=== PATIENT | male | born 1970 | race Caucasian/White ===

== ENCOUNTER 2017-08-06 11:02 | Emergency (ER) | payer SELFPAY ==
[~2017-08-06] VITALS: Ht 175.3 cm; Wt 61.7 kg
[~2017-08-06 11:02] MED LIST: LOR5/325 PO; PENI-24 PO; PER PO
[2017-08-06] MEDS ORDERED: BISM-40 PO (11:12)
[2017-08-06] MEDS ORDERED: COLD (11:12)
--- NOTE | 2017-08-06 11:13 | ER Report ---
History and Physical Time Seen By MD: 11:13 Hx. of Stated Complaint: ABD PAIN FOR 3 DAYS, GETTING NO BETTER, SLIGHT N/D HPI/ROS CHIEF COMPLAINT: Abdominal pain HISTORY OF PRESENT ILLNESS: 47-year-old male patient presents to emergency room with complaint of abdominal pain. Patient states this been going on for the past 3 days. He states this started while he was on his day off. He states that he has not been able to work because is having so much pain. He states the pain seems to be most [place] in the left upper quadrant as well as some slight discomfort in the right upper quadrant. Patient denies having any fevers, chills. He states his been nauseated and having some diarrhea. Patient did force himself to vomit twice. He states there was no improvement with that. Patient has taken Pepto-Bismol as well as an [id number] flu medication with no improvement. He states that he is more concerned because the pain does not seem to be improving. REVIEW OF SYSTEMS: Respiratory: No cough, no dyspnea. Cardiovascular: No chest pain, no palpitations. Gastrointestinal: As noted above. Musculoskeletal: No back pain. Allergies: Coded Allergies: No Known Drug Allergies (Unverified , 11/06/11) Home Meds Active Scripts Tramadol Hcl (TRAMADOL HCL) 50 Mg Tablet, 50 MG PO Q4-6H Y for PAIN, #10 TAB Prov:LILY MORSE [employer] 08/06/17 Reported Medications Bismuth Subsalicylate (PEPTO-BISMOL) 262 Mg/15 Ml Oral.susp, 262 MG PO 08/06/17 [Otc Cold] No Conflict Check 08/06/17 Discontinued Reported Medications Hydrocodone Bit/Acetaminophen (HYDROCODON-ACETAMINOPHEN 5-325) 1 Each Tablet, 2 EACH PO Q6H 03/09/13 Penicillin V Potassium 500 Mg Tab (PENICILLIN V POTASSIUM 500 MG TAB) 500 Mg Tablet, 500 MG PO 03/09/13 Hydrocodone Bit/Acetaminophen (HYDROCODON-ACETAMINOPHEN 5-325) 1 Each Tablet, 2 EACH PO Q6H, #20 03/09/13 Penicillin V Potassium 500 Mg Tab (PENICILLIN V POTASSIUM 500 MG TAB) 500 Mg Tablet, 500 MG PO 3xd for 10 Days 03/09/13 Past Medical/Surgical History Patient has a past medical history of rib fractures, marijuana use, depression. Patient denies any surgical history. Reviewed Nurses Notes: Yes Hx Smoking: Yes Hx Substance Use Disorder: Yes (OCC POT) Hx Alcohol Use: No Constitutional Vital Sign - Last 24 Hours 08/06/17 08/06/17 08/06/17 08/06/17 11:08 11:08 11:30 11:32 Temp 97.9 Pulse 59 56 Resp 20 B/P (MAP) 159/100 159/100 (119) 141/110 (120) Pulse Ox 96 97 O2 Delivery Room Air 08/06/17 08/06/17 08/06/17 08/06/17 12:00 12:02 12:30 12:32 Pulse 56 68 B/P (MAP) 135/84 (101) 135/102 (113) Pulse Ox 95 98 08/06/17 08/06/17 12:37 12:39 Pulse 57 B/P (MAP) 140/94 (109) 140/94 (109) Intake and Output 08/06/17 08/06/17 08/07/17 15:00 23:00 07:00 Intake Total 1000 ml Balance 1000 ml Physical Exam General Appearance: The patient is alert, has no immediate need for airway protection and no current signs of toxicity. Respiratory: Chest is non tender, lungs are clear to auscultation. Cardiac: regular rate and rhythm Gastrointestinal: Abdomen is soft and tender in the bilateral upper quadrants, seems to have slight hepatomegaly, no masses, bowel sounds normal. Musculoskeletal: Neck: Neck is supple and non tender. Extremities have full range of motion and are non tender. Skin: No rashes or lesions. DIFFERENTIAL DIAGNOSIS: After history and physical exam differential diagnosis was considered for abdominal pain including but not limited to appendicitis, cholecystitis, gastritis and urinary tract infection. Medical Decision Making Data Points Result Diagram: 08/06/17 1122 08/06/17 1122 Laboratory Hematology Test 08/06/17 11:07 08/06/17 11:22 Urine Color Yellow Urine Clarity Clear Urine pH 6.0 pH (4.8-9.5) Urine Specific Luther 1.030 Urine Protein Negative mg/dL (NEGATIVE) Urine Glucose (UA) Negative mg/dL (NEGATIVE) Urine Ketones 20 mg/dL (NEGATIVE) Urine Blood Negative (NEGATIVE) Urine Nitrite Negative (NEGATIVE) Urine Bilirubin Negative (NEGATIVE) Urine Urobilinogen Negative mg/dL (0.2-1.9) Urine Leukocyte Esterase Negative (NEGATIVE) Urine RBC <1 /HPF (0-2/HPF) Urine WBC None /HPF (0-5/HPF) Urine Squamous Epithelial Cells None /LPF (</=FEW) Urine Bacteria Negative /HPF (NONE-FEW) Urine Mucus Few /HPF (NONE-FEW) Red Blood Count 5.38 M/uL (4.00-5.60) Mean Corpuscular Volume 97.6 fL (80.0-96.0) Mean Corpuscular Hemoglobin 33.9 pg (26.0-33.0) Mean Corpuscular Hemoglobin Concent 34.7 g/dL (32.0-36.0) Red Cell Distribution Width 12.8 % (11.5-14.5) Mean Platelet Volume 7.3 fL (7.2-11.1) Neutrophils (%) (Auto) 79.3 % (39.4-72.5) Lymphocytes (%) (Auto) 13.9 % (17.6-49.6) Monocytes (%) (Auto) 5.8 % (4.1-12.4) Eosinophils (%) (Auto) 0.5 % (0.4-6.7) Basophils (%) (Auto) 0.5 % (0.3-1.4) Nucleated RBC Relative Count (auto) 0.0 /100WBC Neutrophils # (Auto) 6.0 K/uL (2.0-7.4) Lymphocytes # (Auto) 1.1 K/uL (1.3-3.6) Monocytes # (Auto) 0.4 K/uL (0.3-1.0) Eosinophils # (Auto) 0.0 K/uL (0.0-0.5) Basophils # (Auto) 0.0 K/uL (0.0-0.1) Nucleated RBC Absolute Count (auto) 0.00 K/uL Sodium Level 141 mmol/L (137-145) Potassium Level 3.8 mmol/L (3.5-5.0) Chloride Level 103 mmol/L (98-107) Carbon Dioxide Level 26 mmol/L (22-30) Blood Urea Nitrogen 18 mg/dl (9-21) Creatinine 0.90 mg/dl (0.66-1.25) Glomerular Filtration Rate Calc > 60.0 Random Glucose 104 mg/dl (75-110) Calcium Level 8.9 mg/dl (8.4-10.2) Total Bilirubin 0.5 mg/dl (0.2-1.3) Aspartate Amino Transf (AST/SGOT) 42 U/L (0-35) Alanine Aminotransferase (ALT/SGPT) 62 U/L (0-56) Alkaline Phosphatase 87 U/L (0-126) C-Reactive Protein < 0.5 mg/dl (<1.0) Total Protein 7.4 gm/dl (6.3-8.2) Albumin 4.1 g/dl (3.5-5.0) Lipase 61 U/L (23-300) Chemistry Test 08/06/17 11:07 08/06/17 11:22 Urine Color Yellow Urine Clarity Clear Urine pH 6.0 pH (4.8-9.5) Urine Specific Luther 1.030 Urine Protein Negative mg/dL (NEGATIVE) Urine Glucose (UA) Negative mg/dL (NEGATIVE) Urine Ketones 20 mg/dL (NEGATIVE) Urine Blood Negative (NEGATIVE) Urine Nitrite Negative (NEGATIVE) Urine Bilirubin Negative (NEGATIVE) Urine Urobilinogen Negative mg/dL (0.2-1.9) Urine Leukocyte Esterase Negative (NEGATIVE) Urine RBC <1 /HPF (0-2/HPF) Urine WBC None /HPF (0-5/HPF) Urine Squamous Epithelial Cells None /LPF (</=FEW) Urine Bacteria Negative /HPF (NONE-FEW) Urine Mucus Few /HPF (NONE-FEW) White Blood Count 7.6 k/uL (4.5-11.0) Red Blood Count 5.38 M/uL (4.00-5.60) Hemoglobin 18.2 g/dL (14.0-18.0) Hematocrit 52.5 % (42.0-52.0) Mean Corpuscular Volume 97.6 fL (80.0-96.0) Mean Corpuscular Hemoglobin 33.9 pg (26.0-33.0) Mean Corpuscular Hemoglobin Concent 34.7 g/dL (32.0-36.0) Red Cell Distribution Width 12.8 % (11.5-14.5) Platelet Count 253 K/uL (150-450) Mean Platelet Volume 7.3 fL (7.2-11.1) Neutrophils (%) (Auto) 79.3 % (39.4-72.5) Lymphocytes (%) (Auto) 13.9 % (17.6-49.6) Monocytes (%) (Auto) 5.8 % (4.1-12.4) Eosinophils (%) (Auto) 0.5 % (0.4-6.7) Basophils (%) (Auto) 0.5 % (0.3-1.4) Nucleated RBC Relative Count (auto) 0.0 /100WBC Neutrophils # (Auto) 6.0 K/uL (2.0-7.4) Lymphocytes # (Auto) 1.1 K/uL (1.3-3.6) Monocytes # (Auto) 0.4 K/uL (0.3-1.0) Eosinophils # (Auto) 0.0 K/uL (0.0-0.5) Basophils # (Auto) 0.0 K/uL (0.0-0.1) Nucleated RBC Absolute Count (auto) 0.00 K/uL Glomerular Filtration Rate Calc > 60.0 Calcium Level 8.9 mg/dl (8.4-10.2) Total Bilirubin 0.5 mg/dl (0.2-1.3) Aspartate Amino Transf (AST/SGOT) 42 U/L (0-35) Alanine Aminotransferase (ALT/SGPT) 62 U/L (0-56) Alkaline Phosphatase 87 U/L (0-126) C-Reactive Protein < 0.5 mg/dl (<1.0) Total Protein 7.4 gm/dl (6.3-8.2) Albumin 4.1 g/dl (3.5-5.0) Lipase 61 U/L (23-300) Urinalysis Test 08/06/17 11:07 Urine Color Yellow Urine Clarity Clear Urine pH 6.0 pH (4.8-9.5) Urine Specific Luther 1.030 Urine Protein Negative mg/dL (NEGATIVE) Urine Glucose (UA) Negative mg/dL (NEGATIVE) Urine Ketones 20 mg/dL (NEGATIVE) Urine Blood Negative (NEGATIVE) Urine Nitrite Negative (NEGATIVE) Urine Bilirubin Negative (NEGATIVE) Urine Urobilinogen Negative mg/dL (0.2-1.9) Urine Leukocyte Esterase Negative (NEGATIVE) Urine RBC <1 /HPF (0-2/HPF) Urine WBC None /HPF (0-5/HPF) Urine Squamous Epithelial Cells None /LPF (</=FEW) Urine Bacteria Negative /HPF (NONE-FEW) Urine Mucus Few /HPF (NONE-FEW) EKG/Imaging Imaging Additional pertinent History: Abdominal pain TECHNIQUE: Spiral scan was through the abdomen and pelvis during injection of nonionic iodinated intravenous contrast. Contrast: 75 mL of IV Isovue-370. One of the following dose optimization techniques was utilized in the performance of this exam: Automated exposure control; adjustment of the mA and/ or kV according to the patient's size; or use of an iterative reconstruction technique. Specific details can be referenced in the facility's radiology CT exam operational policy. COMPARISON STUDIES: none. FINDINGS: Liver / biliary: Small hypoattenuated lesion in the right lobe of liver measuring 5 m. Gallbladder decompressed with no gallstones. Pancreas: negative Spleen: negative Adrenal glands: negative Kidneys / retroperitoneum: No renal stones or renal obstructive uropathy change. Normal renal nephrograms Pelvic structures: Prostate is normal. No pelvic fluid Bowel / peritoneum / mesenteries: Visualized bowel normal in appearance with no bowel inflammation. Appendix is normal. Vessels: negative Musculoskeletal / Body wall: negative Lymph node assessment: negative Lower chest: negative IMPRESSION: 1. Negative CT scan of the abdomen/pelvis for acute pathology. Specifically no diverticulitis or appendicitis. Report Dictated By: Philip Caldera MD at 08/06/2017 12:02 PM Report E-Signed By: Philip Caldera MD at 08/06/2017 12:11 PM ED Course/Re-evaluation ED Course Patient was admitted exam room, history and physical obtained. Differential diagnoses were considered. On examination patient had tenderness in the right upper and left upper quadrants. A CBC, CMP, urinalysis, CT scan of abdomen and pelvis were done. Patient received a normal saline bolus of 1 L. On reexamination patient states he is still having some discomfort states he does have decreased pain. Labs were unremarkable, CT scan of abdomen and pelvis showed no acute findings. I discussed this with the patient who verbalized understanding and agreement. We will go ahead and discharge patient home at this time. I will like him take Pepto-Bismol as needed for discomfort. I believe that he is likely having a gastroenteritis and should be on a clear liquid diet for the next 24-48 hours. Patient verbalized understanding and agreement. Decision to Disposition Date: Aug 06, 2017 Decision to Disposition Time: 12:26 Depart Departure Latest Vital Signs Vital Signs Date Time Temp Pulse Resp B/P (MAP) Pulse Ox O2 Delivery O2 Flow Rate FiO2 08/06/17 12:39 57 140/94 (109) 08/06/17 12:32 98 08/06/17 11:08 97.9 20 Room Air Impression: Primary Impression: Abdominal pain Condition: Improved Disposition: HOME OR SELF-CARE New Scripts Tramadol Hcl (TRAMADOL HCL) 50 Mg Tablet 50 MG PO Q4-6H Y for PAIN, #10 TAB Prov: LILY MORSE 08/06/17 Patient Instructions: Abdominal Pain (ED) Additional Instructions: Increase fluid intake. Clear liquid diet for the next 24-48 hours. After that you may advance diet as tolerated starting with complex carbohydrates ; rice, bread or pasta. Follow up with your primary care provider in the next week. Return to the ER if condition worsens. You may take over the counter Pepto Bismol as needed for cramping, diarrhea and discomfort. Problem Qualifiers Primary Impression: Abdominal pain Abdominal location: upper abdomen, unspecified Qualified Codes: R10.10 - Upper abdominal pain, unspecified MINIHILDAManoj LYLE Aug 06, 2017 11:13
[2017-08-06] MEDS ORDERED: NS(*) 0.9% 1000 ML BAG 1,000 ML IV ONE (11:22)
[2017-08-06 11:29] LABS: PLATELET COUNT, AUTOMATED 253 K/uL (150-450)
[2017-08-06] MEDS ORDERED: IOPAMIDOL 76% 75 ML INFUS BTL 75 ML ONE (11:42)
[2017-08-06] MEDS ORDERED: NS 0.9% 20 ML SDV 60 ML ONE (11:43)
--- NOTE | 2017-08-06 12:15 | RADIOLOGY IMAGING REPORT ---
FACILITY: [facility] PATIENT NAME: Reuben Clement : 1970 MR: [id number] V: [id number] EXAM DATE: ORDERING PHYSICIAN: LILY MORSE TECHNOLOGIST: Location: [facility] Patient: Reuben Clement : 1970 Visit/Account:[id number] Date of Sevice: 08/06/2017 With it was it was ordered as a single view adult O canal which is changing the order Additional pertinent History: Abdominal pain TECHNIQUE: Spiral scan was through the abdomen and pelvis during injection of nonionic iodinated in travenous contrast. Contrast: 75 mL of IV Isovue-370. One of the following dose optimization techniques was utilized in the performance of this exam: Autom ated exposure control; adjustment of the mA and/or kV according to the patient's size; or use of an i terative reconstruction technique. Specific details can be referenced in the facility's radiology C T exam operational policy. COMPARISON STUDIES: none. FINDINGS: Liver / biliary: Small hypoattenuated lesion in the right lobe of liver measuring 5 m. Gallbladder de compressed with no gallstones. Pancreas: negative Spleen: negative Adrenal glands: negative Kidneys / retroperitoneum: No renal stones or renal obstructive uropathy change. Normal renal nephrog padmini Pelvic structures: Prostate is normal. No pelvic fluid Bowel / peritoneum / mesenteries: Visualized bowel normal in appearance with no bowel inflammation. A ppendix is normal. Vessels: negative Musculoskeletal / Body wall: negative Lymph node assessment: negative Lower chest: negative IMPRESSION: 1. Negative CT scan of the abdomen/pelvis for acute pathology. Specifically no diverticulitis or appe ndicitis. Report Dictated By: Philip Caldera MD at 08/06/2017 12:02 PM Report E-Signed By: Philip Caldera MD at 08/06/2017 12:11 PM [id number]
[2017-08-06] MEDS ORDERED: TRAM-420 PO (12:32)
[2017-08-06 12:39] VITALS: BP 140/94
== END 2017-08-06 12:40 | disposition home or self-care (01) ==
LOC: ER 11:20
DX: R10.12 Left upper quadrant pain (principal); R10.11 Right upper quadrant pain
CPT/HCPCS: 74177; 81001; 83690; 85025; 86140; 96360; 99283; J7030; J7050; Q9967; 82040; 82247; 82310; 82374; 82435; 82565; 82947; 84075; 84132; 84155; 84295; 84450; 84460; 84520